=== PATIENT | male | born 1980 | race Caucasian/White ===

== ENCOUNTER 2017-11-24 07:41 | Inpatient (IN) | payer OTHER ==
[~2017-11-24] VITALS: Ht 170.2 cm; Wt 78.0 kg
[2017-11-24] MEDS ORDERED: DICYCLOMINE HCL 20 MG TABLET PO PRN (12:45)
[2017-11-24] MEDS ORDERED: ONDANSETRON ODT 4 MG TAB.RAPDIS SL PRN (12:45)
[2017-11-24] MEDS ORDERED: MIRALAX 17 GM POWD.PACK PO PRN (12:45)
[2017-11-24] MEDS ORDERED: LOPERAMIDE HCL 2 MG CAPSULE PO PRN ×2 (12:45)
[2017-11-24] MEDS ORDERED: MAGNESIUM HYDROXIDE 30 ML LIQUID UDC PO PRN (12:45)
[2017-11-24] MEDS ORDERED: IBUPROFEN 600 MG TABLET PO PRN (12:45)
[2017-11-24] MEDS ORDERED: LORAZEPAM 1 MG TABLET PO PRN ×2 (12:45)
[2017-11-24] MEDS ORDERED: THIAMINE HCL 200 MG/2 ML VIAL IM ONE (12:45)
[2017-11-24] MEDS ORDERED: ACETAMINOPHEN 325 MG TABLET PO PRN (12:45)
[2017-11-24] MEDS ORDERED: MAG HYDROX/AL HYDROX/SIMETH 30 ML LIQUID UDC PO PRN (12:45)
[2017-11-24] MEDS ORDERED: METHOCARBAMOL 750 MG TABLET PO PRN (12:45)
[2017-11-24] MEDS ORDERED: LORAZEPAM 2 MG/1 ML VIAL IM PRN (12:45)
[2017-11-24] MEDS ORDERED: ONDANSETRON 4 MG/2 ML VIAL IM PRN (12:45)
[2017-11-24] MEDS: CLONIDINE HCL 0.1 MG TABLET PO PRN ×2 (13:48→22:45)
--- NOTE | 2017-11-24 13:48 | NUR ---
PRN MEDICATION Pt c/o anxiety and presented with elevated blood pressure of 167/79 mmHg requested something for relief, pt provided with PRN Clonidine 0.1mg all needs met will continue to monitor
[2017-11-24 14:17] LABS: *AMPHETAMINE, URINE NEGATIVE (NEGATIVE); *BARBITURATE, URINE NEGATIVE (NEGATIVE); *CANNABINOID, URINE POSITIVE (NEGATIVE); *COCCAINE, URINE POSITIVE (NEGATIVE); *OPIATE, URINE NEGATIVE (NEGATIVE); *PHENCYCLIDINE SCREEN,URINE NEGATIVE (NEGATIVE)
--- NOTE | 2017-11-24 14:50 | NUR ---
ADMISSION NOTE Pt is a 37 year old male, admitted on 11/24/2017 at 1302 for ETOH, Benzo Adderall, MDMA, and Kratom Dependence and medically supervised withdrawals. Pts skin and body check completed, no contraband found, Pt has a an ingrown hair on his right goring. Pt awake, alert, oriented x 4, gait steady, pt is ambulatory without assistance. Pt weights 175 pounds and his height is 57. Denies any history of seizures. Pt escorted to room 312 where the rest of assessment was completed. Pt is primary source of information, information consistent, speech coherent. Pt did not bring any home medications. Pt refused PNA and influenza Vaccinations stating that he will receive it somewhere else. Pt states that he does have a PCP by the name of Dr. Garcia. Pt requested to be full code, regular diet on fall precautions, Pt denies any food or drug allergies. His last BM was on 11/23/2017. Pt states that he lives in a apartment in [place] by himself. Pt denies smoking cigarettes. Pt denies being admitted to a hospital in the past 30 days, Pt is not a candidate for MRSA. Pts initial vital signs are BP: 167/79, Temp: 98.2, Pulse: 116 SPO2: 98% RR:18 and states that he has 0/10 pain. Pts initial CIWA was a 13. Pt reports PMH of Anxiety, Depression, Low testosterone and MRSA. Pts longest sobriety lasted 2 years which was from [id number]. Pt stated that he does not attend AA meetings. Pt reported family history of abuse, his father was an alcoholic and used heroin. Pt denies any suicidal or homicidal ideations. Substance use Hx: 1. ETOH (wine): pt reported first drinking when he was 13 years of age. Pt reports drinking 1 bottle of wine daily for the past 6 months, he last drank yesterday stating he drank a whole bottle. 2. Xanax: Pt reported first taking Xanax in the year 1999. Pt reports taking up to 1mg of Xanax daily for the past 6 months. He last took Xanax yesterday stating he took 1mg. 3. MDMA: pt reported first taking MDMA in the year of 1999. Pt reports taking up to 2.5 grams of MDMA daily for the past week. He last took MDMA yesterday stating he took 2.5 grams. 4. Adderall: Pt reported first taking Adderall in the year 2003. Pt reports taking up to 60mg of Adderall daily for the past 6 months. He last took it yesterday stating he took 60 mg. 5. Kratom: Pt reported first taking Kratom on January 27 2016. Pt reports taking up to 28 grams of daily for the past 6 months. He last took it yesterday stating he took 28 grams. Rehab history: Pt attended [facility] 2009 Pt cooperative, appears fidgety and glittery , reports moderate anxiety. Educated on relaxation techniques (deep breathing) pt verbalized understanding. Pt denies SI/HI at this time, denies hallucinations. Skin warm and moist from sweat, color pink, consistent throughout the body. Eyes PEERLLA, tremors noted and felt. All extremities with full ROM. Lung sounds clear bilaterally, no cough present, pt denies SOB. Heart rate regular. Cap refill <3 sec. No edema noted. Abdomen soft, round, bowel sounds active x 4, non tender. Pt denies urinary difficulties, urine was provided and sent to lab. Pt oriented to unit, room, equipment, shown how to use call light, provided returned demonstration. Fall precautions in place. Side rails up x2, call light within reach, bed locked in low position. MD contacted and aware of patients condition. All admitting orders have been placed, Pt will be on a 5 day Ativan taper starting today. Pt received his Vitamin B injection. His Initial CIWA score was a 13.
[2017-11-24 16:00] VITALS: BP 133/77
--- NOTE | 2017-11-24 16:52 | NUR ---
Client was prompted to attend group sessions daily at 11:00am and at 3:30pm. Client expressed desire to attend group sessions.
[2017-11-24] MEDS: LORAZEPAM 1 MG TABLET PO SCH ×2 (17:00→21:00)
[2017-11-24 17:40] LABS: BASOPHILS # (AUTO) 0.1 K/uL (0.0-8.0); BASOPHILS % (AUTO) 0.9 % (0.0-2.0); EOSINOPHILS % (AUTO) 0.3 % (0.0-7.0); HEMATOCRIT 47.3 % (36.7-47.1); HEMOGLOBIN 16.1 g/dL (12.5-16.3); LYMPHOCYTES # (AUTO) 1.6 K/uL (20.0-40.0); LYMPHOCYTES % (AUTO) 17.7 % (20.5-51.5); MEAN CORPUSCULAR HEMOGLOBIN 30.8 uug (23.8-33.4); MEAN CORPUSCULAR HGB CONC 34 g/dL (32.5-36.3); MEAN CORPUSCULAR VOLUME 90.4 fL (73.0-96.2); MONOCYTES # (AUTO) 0.9 K/uL (2.0-10.0); MONOCYTES % (AUTO) 9.8 % (0.0-11.0); NEUTROPHILS # (AUTO) 6.4 K/uL (1.8-8.9); NEUTROPHILS % (AUTO) 71.3 % (38.5-71.5); PLATELET COUNT (AUTO) 300 K/uL (152-348); RED BLOOD CELL COUNT(AUTO) 5.23 MIL/uL (4.06-5.63); WHITE BLOOD COUNT (AUTO) 8.9 K/uL (3.6-10.2)
--- NOTE | 2017-11-24 17:46 | NUR ---
Medication refusal Pt refused to take his scheduled Ativan at 1700, educated pt on risks and benefits x 3 with no success. MD notified and aware of refusal will continue to monitor pt.
[2017-11-24 17:52] LABS: ALANINE AMINOTRANSFERASE 28 U/L (16-63); ALKALINE PHOSPHATASE 70 U/L (50-136); AMYLASE 55 U/L (25-115); ASPARTATE AMINOTRANSFERASE 19 U/L (15-37); BILIRUBIN,TOTAL 0.8 mg/dL (0.2-1.0); CARBON DIOXIDE 29 mmol/L (21-32); CHLORIDE 100 mmol/L (98-107); CREATININE 1.2 mg/dL (0.6-1.3); GLUCOSE 94 mg/dL (74-106); POTASSIUM 3.8 mmol/L (3.5-5.1); TOTAL PROTEIN, SERUM 7.5 g/dL (6.4-8.2); UREA NITROGEN, BLOOD 9 mg/dL (7-18)
[2017-11-24 17:57] LABS: ETHANOL < 3 MG/DL (0-0)
[2017-11-24 18:02] LABS: THYROID STIMULATING HORMONE 1.756 mIU/mL (0.358-3.740)
--- NOTE | 2017-11-24 18:57 | NUR ---
End Of Shift Report given to maintenance mechanic 2nd shift nurse, plan of care reviewed, VS monitored closely q 4 hours. Withdrawal symptoms were closely monitored, medications given as scheduled plan of care followed. Initial CIWA 13. Patient encouraged adequate PO fluid intake as tolerated. Patient presented glittery with sweats, and anxiety during the day. Pt received PRN Clonidine 0.1mg for elevated BP of 167/79mmHg. Last CIWA 16. Pt refused his 1700 Ativan stating he does not want it because so far he can handle his withdrawal symptoms. Pt ate all of his meals, attended some groups and activities. Patient encouraged to attend all group therapies/sessions to learn new coping skills to recent relapse, patient denies SI/HI. all safety measures in place, bed in lowest locked position, call light within reach. All needs met and attended.
--- NOTE | 2017-11-24 19:10 | NUR ---
Start of Shift Patient Received. Patient is noted in bed sleeping. Breathing even and non labored. Per endorsement, patient was admitted today 11/24/17 for ETOH and Benzo withdrawal. Patient was started on a 5 day Ativan taper but patient refused first dose. No PRN medications administered. Last noted CIWA 16. All needs attended to promptly. Will continue plan of care as ordered.
[2017-11-24 20:21] VITALS: BP 131/69
--- NOTE | 2017-11-24 21:00 | NUR ---
Medication Refused Patient is noted refusing taper medication of Ativan 2mg and patient states "today is the anniversary of my brother passing and I dont want to take anything just because it doesn't feel right." Patient goes on to state "I feel like If I start taking the Ativan, I'm going to start trying to manipulate you into giving me more medications." Risks and benefits explained. Patient was able to verbalize understanding. Will continue to monitor.
[2017-11-24 22:43] VITALS: BP 140/89
[2017-11-24] MEDS: diphenhydrAMINE 50 MG CAPSULE PO PRN (22:44)
--- NOTE | 2017-11-24 22:45 | NUR ---
PRN Medication Administration patient is noted verbalizing inability of falling asleep. He is also noted with elevated blood pressure of 140/89. Patient is still noted to refuse Ativan medication. Patient states "I might take it tomorrow but as for right now I dont want it." PRN Benadryl and Clonidine administered. Will continue to monitor.
--- NOTE | 2017-11-24 23:14 | NUR ---
PRN Medication Administration Patient is noted awake and verbalizing "I feel like I'm spiraling. Im anxious, agitated, sweating, racing thoughts, increased cravings." CIWA 18. Patient states "ill take the Ativan." PRN Ativan 2mg administered. Will continue to monitor.
--- NOTE | 2017-11-25 00:10 | NUR ---
PRN Medication Reassessment Patient is noted in bed sleeping but easily aroused to verbal stimuli. Breathing even and non labored. Patient is able to verbalize "I feel much better now. Im just going to try and catch some sleep." PRN Ativan, Clonidine, and Benadryl noted to be effective. CIWA noted to be 6. All needs attended to promptly. Will continue to monitor.
[2017-11-25 00:33] VITALS: BP 107/57
[2017-11-25 04:10] VITALS: BP 104/55
--- NOTE | 2017-11-25 07:25 | NUR ---
End of Shift Patient is noted in bed sleeping. Breathing even and non labored. patient was admitted today 11/24/17 for ETOH and Benzo withdrawal. Patient was started on a 5 day Ativan taper but patient refused first two doses of taper. PRN Benadryl, Clonidine, and shortly after Ativan 2mg administered due to elevated CIWA of 18. Medications all noted to be effective. Last noted CIWA 6. Patient noted to sleep a total of 6 hours. All needs attended to promptly. Will continue plan of care as ordered.
--- NOTE | 2017-11-25 07:45 | NUR ---
START OF SHIFT Rcvd endorse from ongoing nurse, client is lying in bed in a position, covered from head to toe with several blankets, client is a/o x 4, he presents with depressed mood, flat affect, avoidant gaze, flushed face, dry lips, tremors felt, goosebump, clammy skin, restless, and difficulty concentrating. Client reports anxiety, irritability, sense of panic, cold/chills, sweats, headache, restless legs, nausea, abdominal cramps, no appetite, and fatigue. Encourage client to increase PO fluid to maintain hydration and facilitate detox. Encourage client to attend group therapy to learn skills to maintain sober. Last CIWA 6 @ 2400. 4 day Ativan taper to start this am. PRN Clonidine 0.1mg PO for anxiety, PRN Benadryl 50mg PO for inability to sleep, PRN Ativan 2 mg PO for CIWA 18, see notes per effectiveness. Client slept 6 hrs. Seizure precautions rendered. Call light within reach.
[2017-11-25 08:56] VITALS: BP 103/66
[2017-11-25] MEDS ORDERED: TUBERCULIN,PURIF.PROT.DERIV. 5 TU/0.1 ML TEST ID ONE (09:00)
[2017-11-25] MEDS: LORAZEPAM 1 MG TABLET PO SCH ×4 (09:00→21:50)
[2017-11-25] MEDS: MULTIVITAMINS,THERAPEUTIC TABLET PO SCH (09:51)
[2017-11-25] MEDS: THIAMINE HCL 100 MG TABLET PO SCH (09:51)
[2017-11-25] MEDS: FOLIC ACID 1 MG TABLET PO SCH (09:51)
--- NOTE | 2017-11-25 10:00 | NUR ---
Notifjuanrtbridget López made aware of Hep C positive Addendum: 11/25/17 at 1932 by DOMO BAHENA RN wrong client
--- NOTE | 2017-11-25 12:10 | NUR ---
Client declined PRN Ativan 2mg for CIWA 14, mb anxiety, agitation, fine tremors, flushed face, chills/cold, headache, and nausea. Educated client on risks for withdrawal-induced seizure or delirium, he stated, "I know, I know, but that is why I am here at the hospital, incase I have a seizure you guys can help me." Additional education needed. Call light within reach. MD and CN notified.
[2017-11-25 12:32] VITALS: BP 113/68
--- NOTE | 2017-11-25 16:12 | NUR ---
Therapist prompted client to attend group counseling session twice daily at 11:00am and at 3:30pm. Client agreed to attend group sessions.
[2017-11-25 16:55] VITALS: BP 116/61
--- NOTE | 2017-11-25 19:00 | NUR ---
Start of Shift Patient Received. Patient is in his room sleeping. Breathing even and non labored. Per endorsement, patient continues on a 5 day Ativan taper. Patient received all scheduled taper medications. No PRN Medications administered. Last noted CIWA 14. All needs attended to promptly. Will continue plan of care as ordered.
--- NOTE | 2017-11-25 19:24 | NUR ---
END OF SHIFT Endorse client to incoming nurse, client is a/o x 4, he continues to presents with depressed mood, flat affect, flushed face, tremors, restless, difficulty concentrating, anxiety, irritability, sense of panic, cold/chills, sweats, headache, restless legs, nausea, decreased appetite, and fatigue. Last CIWA 14 @ 1600. Client was not compliant with group therapy due to above withdrawal symptoms. Adequate PO fluid intake 2240L, void x 7, stool x 1. Client consumes 50% of meals. Call light within reach.
[2017-11-25 20:35] VITALS: BP 109/59
[2017-11-25] MEDS: GABAPENTIN 300 MG CAPSULE PO SCH (21:00)
[2017-11-26 00:31] VITALS: BP 107/59
[2017-11-26 04:14] VITALS: BP 101/53
--- NOTE | 2017-11-26 07:04 | NUR ---
End of Shift Patient is in bed sleeping. Breathing even and non labored. No signs of restlessness or discomfort. Patient continues on a modified Ativan taper. He refused routine order of Neurontin 300mg and patient states I dont want to be on anymore medication. No PRN Medications administered. Last noted CIWA 12. Patient noted to sleep a total of 6 hours. All needs attended to promptly. Will endorse to continue plan of care as ordered.
--- NOTE | 2017-11-26 07:45 | NUR ---
START OF SHIFT Rcvd endorse from ongoing nurse, client is in bed, client is a/o x 4, he presents with anxious mood, flat affect, flushed face, dark circles under eyes, dry lips, tremors, clammy skin, and goosebump. Client reports feeling anxiety, headache, decreased appetite, abdominal cramps, sense of panic and fatigue. Encourage client to increase PO fluid to maintain hydration and facilitate detox. Encourage client to attend group therapy to learn skills to maintain sober. Last CIWA 12 @ 1999. 4 day Ativan taper (2nd day). Client refused gabapentin 300mg PO. Client slept 6 hrs. Seizure precautions rendered. Call light within reach.
[2017-11-26 08:09] LABS: *TESTOSTERONE, SERUM 1028 ng/dL (264-916)
[2017-11-26 08:12] VITALS: BP 97/54
[2017-11-26] MEDS: GABAPENTIN 300 MG CAPSULE PO SCH (09:00)
[2017-11-26] MEDS: THIAMINE HCL 100 MG TABLET PO SCH (09:23)
[2017-11-26] MEDS: MULTIVITAMINS,THERAPEUTIC TABLET PO SCH (09:23)
[2017-11-26] MEDS: LORAZEPAM 1 MG TABLET PO SCH ×2 (09:23→12:20)
[2017-11-26] MEDS: FOLIC ACID 1 MG TABLET PO SCH (09:23)
[2017-11-26] MEDS ORDERED: KETOROLAC TROMETHAMINE 30 MG INJ IM PRN (12:00)
[2017-11-26 12:11] VITALS: BP 112/60
[2017-11-26 13:10] LABS: HEPATITIS B SURFACE AG Negative (Negative)
[2017-11-26] MEDS ORDERED: DICYCLOMINE HCL 20 MG TABLET PO SCH (15:00)
[2017-11-26 16:50] VITALS: BP 108/66
[2017-11-26] MEDS ORDERED: LORAZEPAM 1 MG TABLET PO SCH ×2 (17:00→21:00)
--- NOTE | 2017-11-26 19:10 | NUR ---
END OF SHIFT Endorse client to incoming nurse, client is in room, he is a/o x 4, he continues to present with anxious mood, flat affect. Nabil ALFARO 11 @ 1600. Call light within reach.
--- NOTE | 2017-11-26 19:15 | NUR ---
Start of Shift Patient is noted in bed sleeping. Breathing even and non labored. Per endorsement, Patient continues on a modified Ativan taper. patient was noted to refuse Neurontin with MD aware and medication discontinued. Last noted CIWA 11. All needs attended to promptly. Will continue to plan of care as ordered.
[2017-11-26 20:33] VITALS: BP 137/63
[2017-11-26] MEDS ORDERED: CLONIDINE HCL 0.1 MG TABLET PO SCH (21:00)
[2017-11-26] MEDS ORDERED: BACLOFEN 10 MG TABLET PO SCH (21:00)
[2017-11-26] MEDS: HYDROXYZINE PAMOATE 25 MG CAPSULE PO PRN (23:35)
[2017-11-26] MEDS: diphenhydrAMINE 50 MG CAPSULE PO PRN (23:35)
--- NOTE | 2017-11-26 23:35 | NUR ---
PRN Medication Administration Patient is noted verbalizing increased anxiety and inability of falling asleep. patient states "My thoughts are racing and its making me very anxious. tis just keeping me up." PRN Vistaril and Benadryl administered. Will continue to monitor.
[2017-11-27 00:26] VITALS: BP 119/61
--- NOTE | 2017-11-27 00:30 | NUR ---
PRN Medication Reassessment Patient is noted in bed sleeping. breathing even and non labored. No signs of restlessness or discomfort noted. PRN Benadryl noted to be effective. Will continue to monitor.
[2017-11-27 04:10] VITALS: BP 106/53
--- NOTE | 2017-11-27 07:05 | NUR ---
End of Shift Patient is noted in bed sleeping. Breathing even and non labored. Patient continues on a modified Ativan taper. Patient was noted to participate in social activities prior to bed. He received PRN Vistaril and Benadryl with medication noted to be effective. Last noted CIWA 14. Patient is noted to sleep a total of 8 hours. All needs attended to promptly. Will endorse to continue to plan of care as ordered.
--- NOTE | 2017-11-27 07:37 | NUR ---
Start of shift note; Received report from night nurse. Patient is 37 year old male admitted on 11/24/17 for ETOH withdrawals. Patient was started on a 5 day Ativan taper, no adverse reactions noted. Patient 's last CIWA is 14 per endorsement . Educated patient regarding the importance of compliance to treatment and medication regime. Encouraged patient to participate in group activities and therapy. All safety measures secured. Will continue to monitor patient .
[2017-11-27 08:00] VITALS: BP 101/56
[2017-11-27] MEDS: THIAMINE HCL 100 MG TABLET PO SCH (08:57)
[2017-11-27] MEDS: MULTIVITAMINS,THERAPEUTIC TABLET PO SCH (08:57)
[2017-11-27] MEDS: FOLIC ACID 1 MG TABLET PO SCH (08:57)
[2017-11-27] MEDS ORDERED: LORAZEPAM 1 MG TABLET PO SCH ×3 (09:00→21:00)
[2017-11-27 12:00] VITALS: BP 138/69
[2017-11-27 16:00] VITALS: BP 123/63
--- NOTE | 2017-11-27 18:43 | NUR ---
End of shift note; Patient is AOX4, appears anxious , complaining of diaphoresis, stomach cramps and restless. Patient continues on Ativan taper to help reduce withdrawal symptoms. Medications were noted to be effective in helping reduce withdrawal symptoms. Patient remained compliant with treatment plan and medication regime. Patient participated in group therapy and activities. Patient's last CIWA score is 8 at 1600. All safety measures secured. Met all needs.
--- NOTE | 2017-11-27 19:44 | NUR ---
START OF SHIFT NOTE Pt. is 37 yo male. Pt. is admitted for ETOH and Xanax withdrawal. Pt. is on 5 day Ativan taper. Pt. has medical history. Pt. is in his room. Pt. is a/o to person, place, time, and purpose. Pt. presents anxious, sweats, stomach cramps, and restlessness. Pt. received no PRN medications during the previous shift. V/S remained stable throughout the day. Last CIWA 8 @ 1600. Call light within reach. Pt. will continue to be monitored and needs met.
[2017-11-27 20:00] VITALS: BP 121/58
[2017-11-27] MEDS: HYDROXYZINE PAMOATE 25 MG CAPSULE PO PRN (22:02)
[2017-11-27] MEDS: diphenhydrAMINE 50 MG CAPSULE PO PRN (22:02)
--- NOTE | 2017-11-27 22:02 | NUR ---
PRN PRN Benadryl 50mg and Vistaril 25mg given. Pt. c/o sleeplessness and anxiety. Will reassess in 1 hour.
--- NOTE | 2017-11-27 23:02 | NUR ---
PRN REASSESSMENT Pt. is in bed w/ eyes closed and breathing is even and unlabored.
[2017-11-28] VITALS: BP 125/58
[2017-11-28] MEDS ORDERED: diphenhydrAMINE 50 MG CAPSULE PO ONE
--- NOTE | 2017-11-28 00:20 | NUR ---
PRN MEDICATION PRN Benadryl 50 mg given. Pt. c/o sleeplessness and restlessness. Will reassess in 1 hour.
--- NOTE | 2017-11-28 01:20 | NUR ---
PRN REASSESSMENT Pt. is in bed w/ eyes closed, breathing is even and unlabored.
--- NOTE | 2017-11-28 04:03 | NUR ---
RN NOTE Pt. deferred CIWA and refused V/S. Pt. is in bed w/ his eyes closed, breathing is unlabored and even.
--- NOTE | 2017-11-28 07:08 | NUR ---
END OF SIFT NOTE Endorsed pt. to oncoming nurse. Pt. is a 37 yo male. Pt. is A/O to person, place, time, and purpose. Pt. presents with anxiety, agitation, flat affect, restlessness, and sweats. Pt. received PRN Benadryl 50 mg and Vistaril 25 mg @ 2202. Pt. also received another PRN Benadryl 50 mg @ 0020. Pt. c/o difficulty sleeping and anxiety. V/S were stable. Pt.s fluid intake was 1000 ml. Pt. voided 2 times and slept for 6 hrs. Last CIWA 9 @ 0000. Call light is within reach and bed is in lowered position.
--- NOTE | 2017-11-28 07:45 | NUR ---
START OF SHIFT Rcvd endorse form ongoing nurse, client is in room, sitting in bed, arms crossed in front of chest, dark circles under his eyes, flushed face, client is a/o x 4. He presents with depressed mood, clammy skin, tremors, difficulty concentrating. Client reports inability to sleep, restless legs, nausea, abdominal cramps, chills, and fatigue. Encourage client to increase PO fluid to facilitate detox. Encourage client to attend group therapy to learn skills to maintain sober. Client is on modified 5 day Ativan (day 4). Last CIWA 9 @ 1999. PRN Benadryl 50mg PO x 2 for inability to sleep, Vistaril 25mg PO for anxiety, effectiveness noted per protocol. Client slept 6 hrs. Seizure precautions rendered. Call light within reach.
[2017-11-28 08:50] VITALS: BP 120/60
[2017-11-28] MEDS ORDERED: LORAZEPAM 1 MG TABLET PO SCH (09:00)
[2017-11-28] MEDS: MULTIVITAMINS,THERAPEUTIC TABLET PO SCH (09:39)
[2017-11-28] MEDS: FOLIC ACID 1 MG TABLET PO SCH (09:39)
[2017-11-28] MEDS: LORAZEPAM 1 MG TABLET PO SCH ×3 (09:39→20:58)
[2017-11-28] MEDS: THIAMINE HCL 100 MG TABLET PO SCH (09:39)
[2017-11-28 12:00] VITALS: BP 136/80
[2017-11-28] MEDS ORDERED: DIPH50CA37 PO (15:04)
[2017-11-28] MEDS ORDERED: CLON0.1T14 PO (15:04)
[2017-11-28] MEDS ORDERED: IBUP-1955 PO (15:04)
[2017-11-28] MEDS ORDERED: HYDR-3895 PO (15:04)
[2017-11-28] MEDS ORDERED: METH-406 PO (15:04)
[2017-11-28 16:44] VITALS: BP 145/79
[2017-11-28] MEDS: HYDROXYZINE PAMOATE 25 MG CAPSULE PO PRN ×2 (17:12→23:23)
[2017-11-28] MEDS: CLONIDINE HCL 0.1 MG TABLET PO PRN (17:13)
--- NOTE | 2017-11-28 17:13 | NUR ---
PRN Clonidine 0.1mg PO, Vistaril 25mg PO administered for BP 145/79 and anxiety respectively. Call light within reach. Will continue to monitor.
--- NOTE | 2017-11-28 18:13 | NUR ---
Reassess PRN Clonidine 0.1mg PO, Vistaril 25mg, BP 130/65, P 98, client stating, "I feel anxious because tomorrow is my last dose of Ativan and the I will be living this place on Wednesday." Client is able to sit still and consume 50% of dinner. Call light within reach.
--- NOTE | 2017-11-28 19:14 | NUR ---
END OF SHIFT Endorsed client to incoming nurse, client is in room, a/o x 4, he continues to present with depressed mood, clammy skin, tremors, restless legs, nausea, abdominal cramps, chills, and fatigue. Adequate PO fluid intake 2250mL, void x 4, stool x 1. Client consumes 50% of meals. Client is compliant with group therapy. PRN medications were administered and noted per protocol. Last CIWA 14 @ 1700. Seizure precautions rendered. Call light within reach.
--- NOTE | 2017-11-28 19:38 | NUR ---
START OF SHIFT NOTE Pt. is 37 yo male. Pt. is A/O to person, place, time, and purpose. Pt. presents with anxious and depressed mood, clammy skin, tremors, restless legs, nausea,abdominal cramps, chills, and fatigue. Pt. is on a 5 day Ativan taper (started 11/24/17). Pt. was given PRN Clonidine and Vistaril @ 1717 for BP of 145/79. After reassessing BP was 130/65. LastCIWA 14 @ 1600. Call light within reach. Pt. will continue to be monitored and needs met.
[2017-11-28 20:00] VITALS: BP 127/76
[2017-11-28] MEDS: diphenhydrAMINE 50 MG CAPSULE PO PRN (23:20)
--- NOTE | 2017-11-28 23:23 | NUR ---
PRN MEDICATION PRN Benadryl 50 mg and Vistaril 25 mg given. Pt. c/o anxiety, restlessness, inability to fall asleep.
--- NOTE | 2017-11-29 | NUR ---
RN NOTE Pt. deferred CIWA and refused V/S. Pt. is in bed w/ his eyes closed and his breathing is even and unlabored.
--- NOTE | 2017-11-29 00:23 | NUR ---
PRN REASSESSMENT Pt. is in bed w/ his eyes closed. Breathing is even and unlabored.
--- NOTE | 2017-11-29 04:01 | NUR ---
RN NOTE Pt. deferred CIWA and refused V/S. Pt. is in bed w/ his eyes closed, breathing is even and unlabored.
--- NOTE | 2017-11-29 07:03 | NUR ---
END OF SHIFT NOTE Endorsed pt. to oncoming nurse. Pt. is A/O to person, place, time, and purpose. Pt. still present with anxiety, blunt affect, depression, worried mood, and restlessness. Pt. attended evening group therapy and is cooperative with treatment plan. Pt. was given PRN Benadryl 50 mg and Vistaril 25 mg @ 2320, pt. was c/o anxiety and difficulty falling asleep. Pt.s s/s were relieved by medications. Pt.s fluid intake was 750 ml. Pt. voided 1 time and slept for 5.75 hrs. Last CIWA 10 @ 1999. Call light is within reach and bed is in the lowered position.
--- NOTE | 2017-11-29 07:23 | NUR ---
Start of shift note; Received report from night nurse. Patient is currently resting with eyes closed, respirations of 18 noted. Patient is a newly admitted patient. Patient is a 29 year old male admitted for Heroin, Benzodiazepine , Methamphetamine withdrawals. Patient to start Ativan and Subutex taper today per endorsement. All safety measures secured. Will closely monitor patient. Addendum: 11/29/17 at 0735 by JONO BLANDON LVN DISREGARD ABOVE NOTE, WRONG PATIENT DOCUMENTATION.
--- NOTE | 2017-11-29 07:35 | NUR ---
Start of shift note; Received report from night nurse. Patient is 37 year old male admitted on 11/24/17 for ETOH withdrawals. Patient was started on a 5 day Ativan taper, no adverse reactions noted. Patient appears anxious complaining of hot and cold sweats and agitation. Patient 's last CIWA is 10 per endorsement . Educated patient regarding the importance of compliance to treatment and medication regime. Encouraged patient to participate in group activities and therapy and to verbalize feelings. All safety measures secured. Will continue to monitor patient .
[2017-11-29 08:00] VITALS: BP 120/74
[2017-11-29] MEDS: MULTIVITAMINS,THERAPEUTIC TABLET PO SCH (08:24)
[2017-11-29] MEDS: THIAMINE HCL 100 MG TABLET PO SCH (08:24)
[2017-11-29] MEDS: FOLIC ACID 1 MG TABLET PO SCH (08:24)
--- NOTE | 2017-11-29 08:43 | NUR ---
PRN medication; Patient is complaining of heartburn. PRN Maalox 30ml given for heartburn. Will continue to monitor for effectiveness of medication .
[2017-11-29] MEDS ORDERED: LORAZEPAM 1 MG TABLET PO SCH (09:00)
--- NOTE | 2017-11-29 09:43 | NUR ---
Re-assessment; Patient denies heartburn. PRN medication noted to be effective.
[2017-11-29 12:00] VITALS: BP 100/71
[2017-11-29 16:00] VITALS: BP 130/60
--- NOTE | 2017-11-29 18:38 | NUR ---
End of shift note; Patient is AOX4, appears anxious , complaining of diaphoresis, stomach cramps and restless. Patient continues on Ativan taper to help reduce withdrawal symptoms. Medications were noted to be effective in helping reduce withdrawal symptoms. Patient remained compliant with treatment plan and medication regime. Patient participated in group therapy and activities. Patient's last CIWA score is 5 at 1600. Patient is medically cleared for discharge tomorrow per MD. All safety measures secured. Met all needs.
--- NOTE | 2017-11-29 19:41 | NUR ---
START OF SHIFT NOTE Received report from outgoing nurse. Pt. is in his room and is A/O to person, place, time, and purpose. Pt. presents with mild anxiety, flat affect, depressed mood, worried, sweats, and body aches. Pt. denies S/I and H/I. Pt. has been compliant with Tx plan and has attended group therapy sessions. Pt. was given no PRN medications. Last CIWA 5 @ 1600. Pt. is being discharged tomorrow 11/30/17. Call light within reach. Pt. will continue to be monitored and needs met.
[2017-11-29 20:00] VITALS: BP 136/67
[2017-11-29] MEDS: diphenhydrAMINE 50 MG CAPSULE PO PRN (23:21)
[2017-11-29] MEDS: HYDROXYZINE PAMOATE 25 MG CAPSULE PO PRN (23:21)
[2017-11-29] MEDS: CLONIDINE HCL 0.1 MG TABLET PO PRN (23:21)
--- NOTE | 2017-11-29 23:21 | NUR ---
PRN MEDICATION PRN Benadryl 50 mg, Clonidine 0.1 mg, and Vistaril 25 mg given. Pt. c/o anxiety, racing thoughts, and inability to sleep. Pt.'s BP 130/90.
[2017-11-30] VITALS: BP 130/90
--- NOTE | 2017-11-30 00:21 | NUR ---
PRN MEDCIATION REASSESSMENT Pt. is in bed, but having trouble falling and staying asleep. Pt. is A/O to person, place, time, and purpose. Pt.'s breathing is unlabored and even.
[2017-11-30] MEDS ORDERED: TRAZODONE 50 MG TABLET PO ONE (02:00)
--- NOTE | 2017-11-30 02:04 | NUR ---
PRN MEDICATION PRN Trazodone 50 mg given. Pt. c/o racing thoughts, anxiety, and restlessness. Will reasses pt. in 1 hr.
--- NOTE | 2017-11-30 03:04 | NUR ---
PRN MEDICATION REASSESSMENT Pt. is in bed w/ his eyes closed. Pt.'s breathing is even and unlabored.
--- NOTE | 2017-11-30 04:00 | NUR ---
RN NOTE Pt. deferred CIWA and refused V/S. Pt. is in bed w/ his eyes closed. Pt.'s breathing is even and unlabored.
--- NOTE | 2017-11-30 07:03 | NUR ---
END OF SHIFT NOTE Endorsed pt. to oncoming nurse. Pt. is in his bed and is A/O to person, place, time, and purpose. Pt. present with anxiety, flat affect, depression, racing thoughts, restlessness, and insomnia. Pt. is complaint with treatment plan. Pt. received PRN Benadryl 50 mg, Clonidine 0.1 mg, and Vistaril 25 mg @ 2321 for anxiety, restlessness, and insomnia. BP was 130/90. Pt. was not responsive to medications. Pt. also then received PRN Trazodone 50 mg @ 0204 for continued insomnia, noted effective. Pt.s fluid intake cyp5025 ml. Pt. slept for 5 hrs. Last CIWA 5 @ 0000. Call light within reach and bed in lowered positions.
--- NOTE | 2017-11-30 07:51 | NUR ---
Start of shift note; Received report from night nurse. Patient is 37 year old male admitted on 11/24/17 for ETOH withdrawals. Patient completed taper without any adverse reactions. Patient appears anxious complaining of hot and cold sweats and agitation. Patient is medically cleared for discharge today. Educated patient regarding the importance of remaining sober and continuation of treatment post discharge. All safety measures secured. Will continue to monitor patient .
[2017-11-30 08:00] VITALS: BP 127/55
[2017-11-30] MEDS: FOLIC ACID 1 MG TABLET PO SCH (09:14)
[2017-11-30] MEDS: MULTIVITAMINS,THERAPEUTIC TABLET PO SCH (09:14)
[2017-11-30] MEDS: THIAMINE HCL 100 MG TABLET PO SCH (09:14)
--- NOTE | 2017-11-30 12:23 | NUR ---
Discharge note; Patient is AOX4. Patient completed treatment without any adverse reactions. Patient is medically cleared for discharge per MD. All valuables, prescriptions and belongings returned to patient. Patient did not have any home medications. Patient denies S/I and H/I. Patient was escorted out of the facility by CONSULTING SENIOR PRACTICE DIRECTOR. Patient left the hospital at exactly 1223 on 11/30/17.
== END 2017-11-30 12:23 | disposition other institution (70) | DRG 895 ==
LOC: SRC 11:57
PROVIDERS: ADMIT Internal Medicine; ATTEND Internal Medicine
PROC: HZ41ZZZ Group Counseling for Substance Abuse Treatment, Behavioral (ICD-10-PCS; principal; 2017-11-24)
PROC: HZ2ZZZZ Detoxification Services for Substance Abuse Treatment (ICD-10-PCS; principal; 2017-11-24)
PROC: HZ31ZZZ Individual Counseling for Substance Abuse Treatment, Behavioral (ICD-10-PCS; 2017-11-25)
DX: F10.232 Alcohol dependence with withdrawal with perceptual disturbance (principal); F31.9 Bipolar disorder, unspecified; I15.9 Secondary hypertension, unspecified; E29.1 Testicular hypofunction; F13.230 Sedative, hypnotic or anxiolytic dependence with withdrawal, uncomplicated; Y90.0 Blood alcohol level of less than 20 mg/100 ml; F16.10 Hallucinogen abuse, uncomplicated; F41.9 Anxiety disorder, unspecified; F90.9 Attention-deficit hyperactivity disorder, unspecified type; Z81.1 Family history of alcohol abuse and dependence; Z91.89 Other specified personal risk factors, not elsewhere classified; F17.290 Nicotine dependence, other tobacco product, uncomplicated; F14.10 Cocaine abuse, uncomplicated; Z82.49 Family history of ischemic heart disease and other diseases of the circulatory system; Z80.8 Family history of malignant neoplasm of other organs or systems; F11.10 Opioid abuse, uncomplicated; F15.23 Other stimulant dependence with withdrawal; G47.00 Insomnia, unspecified
CPT/HCPCS: 36415; 70030-TC; 80307; 80346; 80349; 80353; 83735; 84403; 84443; 85025; 86592; 86705; 86803; 87340; 87806; A4663; G0480; J3411; Q0163